=== PATIENT | male | born 1955 | race Hispanic/Latino ===

== ENCOUNTER 2021-06-11 09:46 | Emergency (ER) | payer MEDICARE ==
[~2021-06-11] VITALS: Ht 172.7 cm; Wt 102.1 kg
[~2021-06-11 09:46] MED LIST: ASPIRIN81 MG PO; CENTRUM SILVER1 EAC3 PO; FISH OIL 1,0001 EAC2 PO; IBUPROFEN400 MG PO; LISINOPRIL10 MG PO; LOSARTAN POTAS100 MG PO; METOPROLOL TART50 MG PO; PRAVASTATIN SOD40 MG PO; PROBIOTIC & AC1 EACH PO; SAW PALMETTO 41 EACH PO; TURMERIC538 MG PO; VITAMIN D310 MCG PO; ZINC PO
[2021-06-11] MEDS ORDERED: ASPIRIN 81 MG CHEW TAB PO ONE (10:15)
[2021-06-11 10:46] LABS: BASOPHILS % 0.6 % (0.0-1.0); EOSINOPHILS # (AUTO) 0.1 (0.0-0.4); HEMATOCRIT 48.3 % (38.2-49.6); HEMOGLOBIN 15.2 g/dL (14.0-18.0); LYMPHOCYTES # (AUTO) 1.6 (1.0-3.2); MEAN CORPUSCULAR HEMOGLOBIN 27.1 pg (28-32); MEAN CORPUSCULAR HGB CONC 31.5 g/dL (31-35); MEAN CORPUSCULAR VOLUME 86.3 fL (81-99); MONOCYTES # (AUTO) 0.4 (0.2-0.8); MONOCYTES % 6.8 % (4.4-11.3); NEUTROPHILS # (AUTO) 4.2 (2.1-6.9); NEUTROPHILS % 65.3 % (38.7-80.0); PLATELET COUNT 261 x10e3/uL (140-360); RED CELL DISTRIBUTION WIDTH 13.8 % (11.7-14.4)
[2021-06-11 11:19] LABS: ALBUMIN 3.4 g/dL (3.5-5.0); ALBUMIN/GLOBULIN RATIO 1.1 (0.8-2.0); ANION GAP 10.4 mmol/L (8-16); CALCIUM 8.7 mg/dL (8.4-10.2); CREATININE, SERUM 1.02 mg/dL (0.72-1.25); POTASSIUM 4.4 mmol/L (3.5-5.1)
[2021-06-11 11:31] LABS: CREATINE KINASE MB 1.4 ng/mL (0-5.0)
== END 2021-06-11 14:17 | disposition home or self-care (01) ==
LOC: ER 10:20
DX: I48.92 Unspecified atrial flutter (principal); I10 Essential (primary) hypertension; E78.5 Hyperlipidemia, unspecified
CPT/HCPCS: 36415; 71045; 80053; 82550; 82553; 84484; 85025; 93005; 99284

== ENCOUNTER → 2021-07-31 | Day surgery (SDC) | payer MEDICARE ==
[2021-07-27 12:10] LABS: BASOPHILS % 0.5 % (0.0-1.0); EOSINOPHILS # (AUTO) 0.1 (0.0-0.4); EOSINOPHILS % 1.4 % (0.0-6.0); HEMATOCRIT 49.3 % (38.2-49.6); HEMOGLOBIN 15.6 g/dL (14.0-18.0); LYMPHOCYTES # (AUTO) 2.3 (1.0-3.2); LYMPHOCYTES % 35.8 % (18.0-39.1); MEAN CORPUSCULAR HGB CONC 31.6 g/dL (31-35); MEAN CORPUSCULAR VOLUME 85.3 fL (81-99); MONOCYTES # (AUTO) 0.5 (0.2-0.8); MONOCYTES % 8.1 % (4.4-11.3); NEUTROPHILS # (AUTO) 3.4 (2.1-6.9); NEUTROPHILS % 53.9 % (38.7-80.0); PLATELET COUNT 248 x10e3/uL (140-360); RED BLOOD COUNT 5.78 x10e6/uL (4.3-5.7); RED CELL DISTRIBUTION WIDTH 13.6 % (11.7-14.4)
[2021-07-27 12:31] LABS: INR 1.05; PROTHROMBIN TIME 13.9 seconds (11.9-14.5)
[2021-07-27 12:37] LABS: ALBUMIN 3.4 g/dL (3.5-5.0); ALBUMIN/GLOBULIN RATIO 1.1 (0.8-2.0); ANION GAP 14.6 mmol/L (8-16); CREATININE, SERUM 0.88 mg/dL (0.72-1.25); POTASSIUM 4.6 mmol/L (3.5-5.1)
[~2021-07-31] VITALS: Ht 170.2 cm; Wt 99.8 kg
[~2021-07-31] MED LIST changes: +BENZOCAINE 20% SPR 60 ML CAN ONE; +ELIQUIS5 MG PO; +LIDOCAINE HCL 2% LOCAL INJ 5 ML SDV VIAL INJ ONE; +METOPROLOL TAR100 MG PO; +POVIDONE IODINE 0.05% 0.05 % ML PO ONE; +PROPOFOL IV EMULSION 10 MG/ML 20 ML VIAL ONE; +SODIUM CHLORIDE 0.9% 1000ML 0 ML ONE; +SODIUM CHLORIDE 0.9% 1000ML 1,000 ML ONE
[2021-07-31 06:55] VITALS: BP 141/91
[2021-07-31 07:43] VITALS: BP 101/68
[2021-07-31 08:00] VITALS: BP 122/91
[2021-07-31 08:14] VITALS: BP 120/97
== END | disposition home or self-care (01) ==
LOC: OR 06:40
PROVIDERS: ATTEND Internal Medicine Cardiovascular Disease
DX: I48.91 Unspecified atrial fibrillation (principal); I48.92 Unspecified atrial flutter; I34.0 Nonrheumatic mitral (valve) insufficiency; I10 Essential (primary) hypertension; E78.5 Hyperlipidemia, unspecified; E78.00 Pure hypercholesterolemia, unspecified; Z88.6 Allergy status to analgesic agent; Z01.812 Encounter for preprocedural laboratory examination; Z20.822 Contact with and (suspected) exposure to COVID-19; Z79.02 Long term (current) use of antithrombotics/antiplatelets; Z79.82 Long term (current) use of aspirin; Z68.34 Body mass index [BMI] 34.0-34.9, adult; Z82.49 Family history of ischemic heart disease and other diseases of the circulatory system
CPT/HCPCS: 36415; 80053; 85025; 85610; 93312; 93320; 93325; J7030; U0002; 93307; J2001

== ENCOUNTER → 2021-09-17 | Outpatient (CLI) | payer MEDICARE ==
[~2021-09-17] MED LIST changes: -BENZOCAINE 20% SPR 60 ML CAN ONE; -LIDOCAINE HCL 2% LOCAL INJ 5 ML SDV VIAL INJ ONE; -POVIDONE IODINE 0.05% 0.05 % ML PO ONE; -PROPOFOL IV EMULSION 10 MG/ML 20 ML VIAL ONE; -SODIUM CHLORIDE 0.9% 1000ML 0 ML ONE; -SODIUM CHLORIDE 0.9% 1000ML 1,000 ML ONE
== END ==
LOC: RAD 11:15
DX: M25.552 Pain in left hip (principal); M54.50 Low back pain, unspecified
CPT/HCPCS: 72110

== ENCOUNTER → 2021-12-12 | Day surgery (SDC) | payer MEDICARE ==
[2021-12-10 09:48] LABS: BASOPHILS # (AUTO) 0.1 (0.0-0.1); BASOPHILS % 0.7 % (0.0-1.0); EOSINOPHILS # (AUTO) 0.1 (0.0-0.4); EOSINOPHILS % 1.1 % (0.0-6.0); HEMATOCRIT 49.2 % (38.2-49.6); HEMOGLOBIN 15.4 g/dL (14.0-18.0); LYMPHOCYTES # (AUTO) 1.8 (1.0-3.2); MEAN CORPUSCULAR HEMOGLOBIN 27.5 pg (28-32); MEAN CORPUSCULAR HGB CONC 31.3 g/dL (31-35); MONOCYTES # (AUTO) 0.5 (0.2-0.8); MONOCYTES % 7.4 % (4.4-11.3); NEUTROPHILS # (AUTO) 4.7 (2.1-6.9); NEUTROPHILS % 65.5 % (38.7-80.0); PLATELET COUNT 255 x10e3/uL (140-360); RED BLOOD COUNT 5.59 x10e6/uL (4.3-5.7); RED CELL DISTRIBUTION WIDTH 12.9 % (11.7-14.4)
[~2021-12-12] MED LIST changes: +CLONIDINE HCL0.2 MG PO; +FENTANYL CITRATE/PF 100MCG/2 ML INJ ONE; +HYOSCYAMINE SULFATE 0.5 MG/ML INJ ONE; +LIDOCAINE HCL 2% LOCAL INJ 5 ML SDV VIAL INJ ONE; +MIDAZOLAM HCL 2 MG/2 ML VIAL ONE; +PROPOFOL IV EMULSION 10 MG/ML 20 ML VIAL ONE
[2021-12-12 09:54] VITALS: BP 113/82
== END | disposition home or self-care (01) ==
LOC: OR 07:43
PROVIDERS: ATTEND Internal Medicine Gastroenterology
DX: Z12.11 Encounter for screening for malignant neoplasm of colon (principal); D12.0 Benign neoplasm of cecum; K57.30 Diverticulosis of large intestine without perforation or abscess without bleeding; K64.8 Other hemorrhoids; I48.92 Unspecified atrial flutter; I10 Essential (primary) hypertension; E78.5 Hyperlipidemia, unspecified; Z88.6 Allergy status to analgesic agent; Z01.810 Encounter for preprocedural cardiovascular examination; Z01.812 Encounter for preprocedural laboratory examination; Z20.822 Contact with and (suspected) exposure to COVID-19; Z79.82 Long term (current) use of aspirin; Z79.899 Other long term (current) drug therapy; Z68.35 Body mass index [BMI] 35.0-35.9, adult
CPT/HCPCS: 36415; 45380; 45384; 85025; 93005; J1980; J2001; J2250; J2704; J3010; U0002; 45378

== ENCOUNTER → 2024-12-09 | Day surgery (SDC) | payer MEDICARE ==
[2024-12-07 10:36] LABS: BASOPHILS % 0.4 % (0.0-1.0); EOSINOPHILS # (AUTO) 0.1 (0.0-0.4); HEMATOCRIT 50.6 % (38.2-49.6); HEMOGLOBIN 15.4 g/dL (14.0-18.0); LYMPHOCYTES # (AUTO) 1.5 (1.0-3.2); LYMPHOCYTES % 20.8 % (18.0-39.1); MEAN CORPUSCULAR HEMOGLOBIN 28.3 pg (28-32); MEAN CORPUSCULAR HGB CONC 30.4 g/dL (31-35); MONOCYTES # (AUTO) 0.6 (0.2-0.8); MONOCYTES % 8.5 % (4.4-11.3); NEUTROPHILS % 68.9 % (38.7-80.0); PLATELET COUNT 250 x10e3/uL (140-360); RED BLOOD COUNT 5.44 x10e6/uL (4.3-5.7); RED CELL DISTRIBUTION WIDTH 12.9 % (11.7-14.4); WHITE BLOOD COUNT 7.27 x10e3/uL (4.8-10.8)
[2024-12-07 11:10] LABS: ANION GAP 14.5 mmol/L (8-16); CALCIUM 9.5 mg/dL (8.4-10.2); CREATININE, SERUM 1.01 mg/dL (0.72-1.25); POTASSIUM 4.5 mmol/L (3.5-5.1)
[2024-12-07 11:48] LABS: INR 1.02
[2024-12-07 11:49] LABS: PARTIAL THROMBOPLASTIN TIME 26.9 seconds (23.8-35.5)
[~2024-12-09] MED LIST changes: +ACETAMINOPHEN 1000 MG/100 ML 100 ML IV ONE; +ACETAMINOPHEN 325 MG TAB PO PRN; +CARISOPRODOL 350 MG TAB PO PRN; +CEPACOL SORE THROAT LOZENGES PO PRN; +D3-5000125 MCG; +DEXAMETHASONE SOD PHOS INJ 4 MG/ML SDV ONE; +DILT-XR120 MG PO; +DILTIAZEM HCL PO SCH; +FISH OIL 1,0001 EAC7; +HYDROCODON-ACE1 EA12 PO; +HYDROMORPHONE 2MG/ML IV PRN; -HYOSCYAMINE SULFATE 0.5 MG/ML INJ ONE; +KETAMINE 50MG/5ML SYR ONE; +LACTATED RINGER'S 1,000 ML IV SCH; +LACTATED RINGER'S 1,000 ML ONE; +LOSARTAN POTASSIUM 100 MG TAB PO SCH; +MAGNESIUM/ALUMINUM/SIMETHICONE 30 ML UDC PO PRN; +METFORMIN HCL 500 MG TAB CR PO SCH; +METFORMIN HCL500 M1 PO; +METOPROLOL TARTRATE 50 MG TAB PO SCH; -MIDAZOLAM HCL 2 MG/2 ML VIAL ONE; +MULTI-VITAMIN1 EACH PO; +MULTIVITAMINS/MINERALS TAB PO SCH; +Morphine 10mg syringe 10 MG/ML INJ IM PRN; +NON-FORMULARY MEDICATION (Pravastatin Sodium 40 MG) PO SCH; +ONDANSETRON HCL INJ 2MG/ML 2ML 2 MG/ML VIAL IV PRN; +ONDANSETRON HCL INJ 2MG/ML 2ML 2 MG/ML VIAL ONE; +OXYCODONE/ACETAMINOPHEN 5-325 1 EACH TABLET PO PRN; +PROMETHAZINE HCL (IM) 25 MG/ML VIAL IM PRN; +ROCURONIUM BROMIDE 1 ML IV ONE; +SAW PALMETTO 41 EACH; +SEVOFLURANE INHAL SOLN 250 ML PEN BTL ONE; +SUGAMMADEX SODIUM 200 MG/2 ML VIAL IV ONE; +TUMERIC; +ZOLPIDEM TARTRATE 5 MG TAB PO PRN
[2024-12-09] MEDS: LACTATED RINGER'S 1,000 ML ONE (07:29)
[2024-12-09] MEDS: CEFAZOLIN SODIUM 2 GM ONE (07:29)
[2024-12-09 09:46] VITALS: TEMP 97.2
[2024-12-09] MEDS: HYDROCODONE/APAP 7.5MG-325MG 1 EA TAB ONE (11:30)
[2024-12-09 12:25] VITALS: BP 145/90; PULSE 77; RESP 16; O2SAT 96
== END | disposition home or self-care (01) ==
LOC: OR 06:30
PROVIDERS: ATTEND Neurological Surgery
DX: M51.16 Intervertebral disc disorders with radiculopathy, lumbar region (principal); Z71.82 Exercise counseling; Z71.3 Dietary counseling and surveillance; I10 Essential (primary) hypertension; Z71.89 Other specified counseling; E78.5 Hyperlipidemia, unspecified; I49.9 Cardiac arrhythmia, unspecified; R73.03 Prediabetes; Z88.6 Allergy status to analgesic agent; Z01.810 Encounter for preprocedural cardiovascular examination; Z01.812 Encounter for preprocedural laboratory examination; Z01.818 Encounter for other preprocedural examination; Z79.82 Long term (current) use of aspirin; Z79.84 Long term (current) use of oral hypoglycemic drugs; Z79.899 Other long term (current) drug therapy; Z68.34 Body mass index [BMI] 34.0-34.9, adult
CPT/HCPCS: 36415; 63047; 71046; 72020; 80048; 85025; 85610; 85730; 86850; 86900; 88304; 93005; J0131; J1100; J2003; J2405; J2704; J3010; J7121